=== PATIENT | male | born 1990 | race African-American/Black ===

== ENCOUNTER 2016-08-02 18:33 | Inpatient (IN) | payer MEDICAID ==
[~2016-08-02] VITALS: Ht 165.1 cm; Wt 55.1 kg
[2016-08-02 19:18] LABS: BASOPHILS % (AUTO) 0.5 % (0.0-2.0); EOSINOPHILS % (AUTO) 2.5 % (1.0-6.0); HEMATOCRIT 49.6 % (41-53); HEMOGLOBIN 16.3 g/dL (13.5-17.5); LYMPHOCYTES # (AUTO) 2.1 K/uL (1.0-4.8); LYMPHOCYTES % (AUTO) 28.1 % (22.0-44.0); MEAN CORPUSCULAR HEMOGLOBIN 31.4 pg (26.0-34.0); MEAN CORPUSCULAR HGB CONC 32.8 G/dL (31.0-37.0); MEAN CORPUSCULAR VOLUME 96 fL (80-100); MONOCYTES # (AUTO) 0.8 K/uL (0.1-1.0); MONOCYTES % (AUTO) 10.4 % (2.0-9.0); NEUTROPHILS # (AUTO) 4.4 K/uL (1.8-7.7); NEUTROPHILS % (AUTO) 58.5 % (40.0-70.0); PLATELET COUNT (AUTO) 196 K/uL (150-450); RED BLOOD CELL COUNT(AUTO) 5.19 MIL/uL (4.50-5.90); RED CELL DISTRIBUTION WIDTH 14.1 % (11.5-14.5); WHITE BLOOD COUNT (AUTO) 7.4 K/uL (4.5-11.0)
[2016-08-02 19:32] LABS: ANION GAP 10 mmol/L (8-16); CALCIUM, TOTAL 9.2 mg/dL (8.8-10.5); CARBON DIOXIDE 26 mmol/L (22-29); CHLORIDE 101 mmol/L (98-107); CREATININE 1.01 mg/dL (0.60-1.30); GLOMERULAR FILTR. RATE CALC > 60 mL/min (>60); POTASSIUM 4.1 mmol/L (3.5-5.1); SODIUM SERUM 137 mmol/L (136-145); UREA NITROGEN, BLOOD 13 mg/dL (7-18)
[2016-08-02 19:37] LABS: ALANINE AMINOTRANSFERASE 28 U/L (12-78); ASPARTATE AMINOTRANSFERASE 30 U/L (15-37); BILIRUBIN,TOTAL 0.3 mg/dL (0.1-1.0); TOTAL PROTEIN, SERUM 7.7 g/dL (6.4-8.2)
[2016-08-02 19:51] LABS: RBC MORPHOLOGY COMMENT NORMAL RBC MORPH
[2016-08-02] MEDS ORDERED: LORazepam 2 MG TABLET PO PRN (20:30)
[2016-08-02] MEDS ORDERED: HALOPERIDOL 5 MG TABLET PO PRN (20:30)
[2016-08-02] MEDS ORDERED: ZOLPIDEM TARTRATE 10 MG TABLET PO PRN (20:30)
[2016-08-02 22:39] VITALS: BP 122/71
[2016-08-02] MEDS ORDERED: INFLUENZA VIRUS VACCINE QVS 2016-17 (3YR+)/PF 60 MCG/0.5 ML SYRINGE IM ONE (23:00)
[2016-08-03 06:25] VITALS: BP 123/90
[2016-08-03 08:01] VITALS: BP 151/84
[2016-08-03] MEDS: NICOTINE 7 MG/24 HOUR PATCH TD SCH (08:58)
[2016-08-03 16:30] VITALS: BP 109/80
[2016-08-03] MEDS ORDERED: IBUPROFEN 400 MG TABLET PO PRN (17:00)
[2016-08-03] MEDS ORDERED: ACETAMINOPHEN 325 MG TABLET PO PRN (17:00)
[2016-08-04 08:30] VITALS: BP 123/79
[2016-08-04 09:04] LABS: CHOL/HDL RATIO 1.7 (4.2-7.3); HEMOGLOBIN A1C 5.3 % (4.5-6.2); THYROID STIMULATING HORMONE 1.39 uIU/mL (0.36-3.74)
[2016-08-04] MEDS: AmLODIPine BESYLATE 2.5 MG TABLET PO SCH (09:13)
[2016-08-04] MEDS: NICOTINE 7 MG/24 HOUR PATCH TD SCH (09:14)
[2016-08-04 17:14] VITALS: BP 138/70
[2016-08-05 08:08] VITALS: BP 129/75
[2016-08-05] MEDS: AmLODIPine BESYLATE 2.5 MG TABLET PO SCH (09:15)
[2016-08-05] MEDS: NICOTINE 7 MG/24 HOUR PATCH TD SCH (09:15)
[2016-08-05 16:30] VITALS: BP 128/74
[2016-08-05] MEDS: RisperiDONE 2 MG TABLET PO SCH (16:59)
[2016-08-06 08:08] VITALS: BP 112/61
[2016-08-06] MEDS: RisperiDONE 2 MG TABLET PO SCH ×2 (09:00→16:34)
[2016-08-06] MEDS: AmLODIPine BESYLATE 2.5 MG TABLET PO SCH (09:09)
[2016-08-06] MEDS: NICOTINE 7 MG/24 HOUR PATCH TD SCH (09:11)
[2016-08-06 18:09] VITALS: BP 116/72
[2016-08-07 01:57] VITALS: BP 110/91
[2016-08-07 08:00] VITALS: BP 128/72
[2016-08-07] MEDS: RisperiDONE 2 MG TABLET PO SCH ×2 (08:53→16:04)
[2016-08-07] MEDS: AmLODIPine BESYLATE 2.5 MG TABLET PO SCH (08:53)
[2016-08-07] MEDS: NICOTINE 7 MG/24 HOUR PATCH TD SCH (08:55)
[2016-08-07 16:38] VITALS: BP 122/75
[2016-08-08] MEDS: RisperiDONE 2 MG TABLET PO SCH ×2 (07:56→16:16)
[2016-08-08] MEDS: AmLODIPine BESYLATE 2.5 MG TABLET PO SCH (07:56)
[2016-08-08] MEDS: NICOTINE 7 MG/24 HOUR PATCH TD SCH (09:19)
[2016-08-08 09:21] VITALS: BP 143/94
[2016-08-08 16:57] VITALS: BP 126/88
[2016-08-09 08:00] VITALS: BP 138/88
[2016-08-09] MEDS: AmLODIPine BESYLATE 2.5 MG TABLET PO SCH (09:12)
[2016-08-09] MEDS: RisperiDONE 2 MG TABLET PO SCH ×2 (09:12→16:23)
[2016-08-09] MEDS: NICOTINE 7 MG/24 HOUR PATCH TD SCH (09:13)
[2016-08-09 17:21] VITALS: BP 128/87
[2016-08-10 09:00] VITALS: BP 119/73
[2016-08-10] MEDS ORDERED: RISP2 PO (09:18)
[2016-08-10] MEDS ORDERED: AMLO2.5T PO (09:23)
[2016-08-10] MEDS: RisperiDONE 2 MG TABLET PO SCH (09:30)
[2016-08-10] MEDS: AmLODIPine BESYLATE 2.5 MG TABLET PO SCH (09:30)
[2016-08-10] MEDS: NICOTINE 7 MG/24 HOUR PATCH TD SCH (09:32)
== END 2016-08-10 12:30 | disposition home or self-care (01) | DRG 750 ==
LOC: EMS 18:36 → 3EI 21:00
PROVIDERS: ADMIT Psychiatry & Neurology Psychiatry; ATTEND Psychiatry & Neurology Psychiatry
DX: F25.9 Schizoaffective disorder, unspecified (principal); F22 Delusional disorders; I10 Essential (primary) hypertension; F12.90 Cannabis use, unspecified, uncomplicated; F19.10 Other psychoactive substance abuse, uncomplicated; F32.9 Major depressive disorder, single episode, unspecified; G40.909 Epilepsy, unspecified, not intractable, without status epilepticus; Z79.899 Other long term (current) drug therapy
CPT/HCPCS: 83036; 84443; 99285; G0480

== ENCOUNTER 2016-08-24 19:03 | Inpatient (IN) | payer MEDICAID ==
[~2016-08-24] VITALS: Ht 165.1 cm; Wt 55.9 kg
[~2016-08-24 19:03] MED LIST: AMLO2.5T PO; RISP2 PO
[2016-08-24] MEDS ORDERED: PROZ10 PO (19:56)
[2016-08-24] MEDS ORDERED: DIVA125T PO (19:56)
[2016-08-24] MEDS ORDERED: ZIPR20CA2 PO (19:56)
[2016-08-24 20:19] LABS: ANION GAP 9 mmol/L (8-16); CALCIUM, TOTAL 9.6 mg/dL (8.8-10.5); CARBON DIOXIDE 30 mmol/L (22-29); CHLORIDE 102 mmol/L (98-107); CREATININE 1.18 mg/dL (0.60-1.30); GLOMERULAR FILTR. RATE CALC > 60 mL/min (>60); POTASSIUM 4.5 mmol/L (3.5-5.1); SODIUM SERUM 141 mmol/L (136-145); UREA NITROGEN, BLOOD 8 mg/dL (7-18)
[2016-08-24 20:24] LABS: ALANINE AMINOTRANSFERASE 35 U/L (12-78); ALBUMIN 4.4 g/dL (3.4-5.0); ASPARTATE AMINOTRANSFERASE 18 U/L (15-37); BILIRUBIN,TOTAL 0.4 mg/dL (0.1-1.0); TOTAL PROTEIN, SERUM 7.9 g/dL (6.4-8.2)
[2016-08-24 20:46] LABS: EOSINOPHILS % (AUTO) 0.4 % (1.0-6.0); HEMATOCRIT 47.8 % (41-53); HEMOGLOBIN 15.5 g/dL (13.5-17.5); LYMPHOCYTES % (AUTO) 29.8 % (22.0-44.0); MEAN CORPUSCULAR HEMOGLOBIN 31.2 pg (26.0-34.0); MEAN CORPUSCULAR HGB CONC 32.5 G/dL (31.0-37.0); MEAN CORPUSCULAR VOLUME 96 fL (80-100); MONOCYTES # (AUTO) 0.5 K/uL (0.1-1.0); MONOCYTES % (AUTO) 6.7 % (2.0-9.0); NEUTROPHILS # (AUTO) 4.2 K/uL (1.8-7.7); NEUTROPHILS % (AUTO) 62.1 % (40.0-70.0); PLATELET COUNT (AUTO) 168 K/uL (150-450); RED BLOOD CELL COUNT(AUTO) 4.99 MIL/uL (4.50-5.90); RED CELL DISTRIBUTION WIDTH 14.2 % (11.5-14.5); WHITE BLOOD COUNT (AUTO) 6.8 K/uL (4.5-11.0)
[2016-08-25] MEDS ORDERED: HALOPERIDOL 5 MG TABLET PO PRN (01:30)
[2016-08-25] MEDS ORDERED: ZOLPIDEM TARTRATE 10 MG TABLET PO PRN (01:30)
[2016-08-25] MEDS ORDERED: LORazepam 2 MG TABLET PO PRN (01:30)
[2016-08-25 03:25] VITALS: BP 144/98
[2016-08-25 08:04] VITALS: BP 133/71
[2016-08-25 08:36] LABS: ADD UA MICROSCOPIC YES; APPEARANCE,URINE CLEAR (CLEAR); GLUCOSE, URINE (UA) NEGATIVE (NEGATIVE); KETONES,URINE NEGATIVE (NEGATIVE); LEUKOCYTE ESTERASE ,URINE NEGATIVE (NEGATIVE); OCCULT BLOOD,URINE NEGATIVE (NEGATIVE); PH,URINE 6.5 (5.0-8.0); PROTEIN,URINE NEGATIVE (NEGATIVE)
[2016-08-25 16:58] VITALS: BP 128/66
[2016-08-25] MEDS: DIVALPROEX SODIUM 500 MG DR TABLET PO SCH (17:39)
[2016-08-25] MEDS: RisperiDONE 3 MG TABLET PO SCH (17:39)
[2016-08-26 08:00] VITALS: BP 116/77
[2016-08-26] MEDS ORDERED: ACETAMINOPHEN 325 MG TABLET PO PRN (09:15)
[2016-08-26] MEDS ORDERED: IBUPROFEN 400 MG TABLET PO PRN (09:15)
[2016-08-26] MEDS: RisperiDONE 3 MG TABLET PO SCH ×2 (09:29→16:14)
[2016-08-26] MEDS: DIVALPROEX SODIUM 500 MG DR TABLET PO SCH ×2 (09:35→16:14)
[2016-08-26 16:47] VITALS: BP 114/78
[2016-08-27 08:00] VITALS: BP 120/67
[2016-08-27] MEDS: DIVALPROEX SODIUM 500 MG DR TABLET PO SCH ×2 (08:51→16:27)
[2016-08-27] MEDS: AmLODIPine BESYLATE 2.5 MG TABLET PO SCH (08:51)
[2016-08-27] MEDS: RisperiDONE 3 MG TABLET PO SCH ×2 (08:51→16:27)
[2016-08-27 20:19] VITALS: BP 116/72
[2016-08-28 08:07] VITALS: BP 110/73
[2016-08-28] MEDS: AmLODIPine BESYLATE 2.5 MG TABLET PO SCH (08:53)
[2016-08-28] MEDS: DIVALPROEX SODIUM 500 MG DR TABLET PO SCH (08:53)
[2016-08-28] MEDS: RisperiDONE 3 MG TABLET PO SCH (08:53)
== END 2016-08-28 15:10 | disposition home or self-care (01) | DRG 753 ==
LOC: EMS 19:04 → 3EI 08-25 01:30
PROVIDERS: ADMIT Psychiatry & Neurology Psychiatry; ATTEND Psychiatry & Neurology Psychiatry
DX: F31.9 Bipolar disorder, unspecified (principal); R45.851 Suicidal ideations; I10 Essential (primary) hypertension; F12.10 Cannabis abuse, uncomplicated; F20.9 Schizophrenia, unspecified; Z79.899 Other long term (current) drug therapy; Z91.5 Personal history of self-harm; Z59.0 Homelessness; Z71.51 Drug abuse counseling and surveillance of drug abuser
CPT/HCPCS: 87081; 99285; G0480